=== PATIENT | male | born 1955 | race Caucasian/White ===

== ENCOUNTER 2020-08-26 00:55 | Emergency (ER) | payer OTHER ==
[~2020-08-26] VITALS: Ht 182.9 cm; Wt 44.3 kg
[2020-08-26] MEDS ORDERED: FURO20 PO (01:59)
[2020-08-26] MEDS ORDERED: FLUO10CA24 PO (01:59)
[2020-08-26] MEDS ORDERED: QUET25TA PO (01:59)
[2020-08-26] MEDS ORDERED: LISI-892 PO (01:59)
[2020-08-26] MEDS ORDERED: LISINOPRIL 10 MG TABLET PO ONE (03:15)
[2020-08-26] MEDS ORDERED: FUROSEMIDE 20 MG TABLET PO ONE (03:15)
[2020-08-26] MEDS ORDERED: OxyCODONE HCL 5 MG IR TABLET PO ONE (03:15)
[2020-08-26 04:31] VITALS: BP 156/75
== END 2020-08-26 05:02 | disposition home or self-care (01) ==
LOC: EMS 00:56
DX: I10 Essential (primary) hypertension (principal); M25.551 Pain in right hip; G89.29 Other chronic pain; F17.210 Nicotine dependence, cigarettes, uncomplicated; F19.90 Other psychoactive substance use, unspecified, uncomplicated; Z79.899 Other long term (current) drug therapy
CPT/HCPCS: 99284; Z7502; Z7610